=== PATIENT | female | born 1985 | race African-American/Black ===

== ENCOUNTER 2017-08-24 06:49 | Emergency (ER) | payer BC ==
[2017-08-24] MEDS ORDERED: Ketorolac Tromethamine 60 MG/2 ML VIAL ONE (07:49)
== END 2017-08-24 08:29 | disposition home or self-care (01) ==
LOC: ERS 06:49
DX: S13.9XXA Sprain of joints and ligaments of unspecified parts of neck, initial encounter (principal); E66.9 Obesity, unspecified; E11.9 Type 2 diabetes mellitus without complications; Z79.84 Long term (current) use of oral hypoglycemic drugs; V43.52XA Car driver injured in collision with other type car in traffic accident, initial encounter
CPT/HCPCS: 96372; J1885